=== PATIENT | female | born 1960 | race Caucasian/White ===

== ENCOUNTER 2019-07-25 07:44 | Day surgery (SDC) | payer OTHER ==
[~2019-07-25] VITALS: Ht 147.3 cm; Wt 60.3 kg
[~2019-07-25 07:44] MED LIST: ASPI81TA85 PO; ATOR40TA75 PO; BRIL1TAB PO; HYDR-3363 PO; LIDOCAINE 1% MDV 20ML VIAL SQ PRN; LISI-542 PO; LR 1,000 ML IV ONE; METH10TA2 PO; METH5TA PO; METO1TAB32 PO; VENL100T PO
[2019-07-25] MEDS ORDERED: ONDANSETRON 4MG/2ML VIAL (J2405) As Ordered ONE (08:56)
[2019-07-25] MEDS ORDERED: ROCURONIUM BROMIDE 50 MG/5 ML VIAL As Ordered ONE (08:56)
[2019-07-25] MEDS ORDERED: PROPOFOL 200 MG/20 ML VIAL As Ordered ONE (08:56)
[2019-07-25] MEDS ORDERED: LIDOCAINE 2% INJ 100 MG/5 ML SDV (FOR ANES.) As Ordered ONE (08:56)
[2019-07-25] MEDS ORDERED: dexameTHASONE 4 MG/ML 1ML VIAL (J1100) As Ordered ONE (08:56)
[2019-07-25] MEDS ORDERED: fentaNYL 100 MCG/2 ML INJECTION (J3010) As Ordered ONE (09:00)
[2019-07-25] MEDS ORDERED: MIDAZOLAM INJ 2 MG/2 ML VIAL (J2250) As Ordered ONE (09:00)
[2019-07-25] MEDS ORDERED: LIDOCAINE W/EPINEPHRINE 1% 20ML VIAL As Ordered ONE (09:27)
[2019-07-25] MEDS ORDERED: ONDANSETRON 4MG/2ML VIAL (J2405) IV PRN (10:45)
[2019-07-25] MEDS ORDERED: fentaNYL 100 MCG/2 ML INJECTION (J3010) IV PRN (10:45)
[2019-07-25] MEDS ORDERED: LR 1,000 ML IV SCH ×2 (10:45)
[2019-07-25] MEDS ORDERED: PERCOCET 5MG/325MG TAB PO PRN (10:45)
[2019-07-25] MEDS ORDERED: HYDROMORPHONE HCL 0.5 MG/ 0.5 ML SYRINGE (J1170 PER 1) IV PRN (10:45)
[2019-07-25 11:05] VITALS: BP 118/57
--- NOTE | 2019-07-26 15:23 | RO ---
DATE OF PROCEDURE: 07/25/2019 PREPROCEDURE DIAGNOSIS: Nonrestorable teeth. POSTPROCEDURE DIAGNOSIS: Nonrestorable teeth. PROCEDURE PERFORMED: Extraction of teeth 19, 20, 21, 22, 23, 24, 25, 26, 27, 28, 29, 30. SURGEON: Demetrio Artis DMD LABORATORY MECHANICAL TECHNICIAN: ANESTHESIA: General. ESTIMATED BLOOD LOSS: 10 mL COMPLICATIONS: None. SPECIMENS: Teeth. The rest of the dictation will be completed on HSTYLE.
== END 2019-07-25 11:25 | disposition home or self-care (01) ==
LOC: M SDC 07:44
PROVIDERS: ATTEND Dentist Oral and Maxillofacial Surgery
DX: K02.9 Dental caries, unspecified (principal); I10 Essential (primary) hypertension; I25.2 Old myocardial infarction; Z95.5 Presence of coronary angioplasty implant and graft; Z79.899 Other long term (current) drug therapy; E78.5 Hyperlipidemia, unspecified; F17.210 Nicotine dependence, cigarettes, uncomplicated; F41.9 Anxiety disorder, unspecified; F32.9 Major depressive disorder, single episode, unspecified; Z79.82 Long term (current) use of aspirin; Z79.02 Long term (current) use of antithrombotics/antiplatelets
CPT/HCPCS: 88300; D7210; D9223; J1100; J2250; J2405; J3010